=== PATIENT | male | born 1995 | race Caucasian/White ===

== ENCOUNTER 2017-02-07 13:09 | Emergency (ER) | payer BC ==
[2017-02-07 13:14] VITALS: BP 120/76; PULSE 61; RESP 16; TEMP 97.7; O2SAT 97
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
== END 2017-02-07 14:05 | disposition home or self-care (01) ==
DX: S90.31XA Contusion of right foot, initial encounter (principal); S93.601A Unspecified sprain of right foot, initial encounter; V18.0XXA Pedal cycle driver injured in noncollision transport accident in nontraffic accident, initial encounter; Y99.8 Other external cause status; Y93.89 Activity, other specified